=== PATIENT | female | born 1980 | race African-American/Black ===

== ENCOUNTER 2016-12-13 13:41 | Emergency (ER) | payer BC ==
[~2016-12-13 13:41] MED LIST: BIRTH CONTROL PILL PO; IMITREX; MOTRIN600 M1 PO; ROBAXIN 750750 M1 PO
[2016-12-13 14:24] LABS: URINE SOURCE CLEAN CATCH
[2016-12-13 14:27] LABS: URINE APPEARANCE CLEAR; URINE BILIRUBIN NEG (NEG); URINE BLOOD 2+ (NEG); URINE COLOR YELLOW; URINE GLUCOSE NEG (NORM); URINE KETONE NEG (NEG); URINE LEUKOCYTE ESTERASE NEG (NEG); URINE NITRATE NEG (NEG); URINE PROTEIN NEG (NEG); URINE SPECIFIC GRAVITY >=1.030 (1.003-1.035); URINE UROBILINOGEN 0.2 MG/DL (NORM)
[2016-12-13 14:28] LABS: MICRO INDICATED? YES
[2016-12-13 14:35] LABS: CULTURE INDICATED? NO; URINE BACTERIA NEG (NEG); URINE WBC 0-2 /[HPF] (0-5)
== END 2016-12-13 15:23 | disposition home or self-care (01) ==
LOC: SED 13:41
PROVIDERS: Emergency Medicine
DX: K29.00 Acute gastritis without bleeding (principal); Z79.899 Other long term (current) drug therapy
CPT/HCPCS: 81003; 84703; 99284